=== PATIENT | male | born 1995 | race Caucasian/White ===

== ENCOUNTER 2018-10-30 20:09 | Emergency (ER) | payer OTHER, SELFPAY ==
[2018-10-30 20:16] VITALS: BP 134/82; PULSE 72; RESP 18; TEMP 36.4; O2SAT 100
--- NOTE | 2018-10-30 20:20 | W.ED.GENAD ---
Discharge Plan Disposition Patient Disposition: HOME Condition: Stable Discharge Details Chief Complaint: Orthopedic Clinical Impression: Right shoulder strain Primary Care Provider: Isabel,Local ED Provider: Ratna Frey Home Meds and New Rx's Prescriptions: Continued ibuprofen 600 mg Tablet 600 mg PO PRN PRNRF: 0 Discharge Instructions Instructions: Shoulder Sprain (ED) Additional Instructions: Rest and ice right shoulder as much as possible. Alternate Tylenol and Motrin as needed and directed for pain. Follow-up with your primary care doctor next week for reevaluation and for referral to orthopedics if your symptoms do not improve or worsen. Return to the emergency department if you develop any worsening or new concerning symptoms. Discharge Data Discharge Physician: Ratna Frey Medical Decision Making 23-year-old male presents with right shoulder injury after pulling a heavy object at work yesterday. There is mild to moderate right shoulder anterior edema and tenderness to palpation but no obvious bony deformity. Neurovascularly intact. We will give a dose of ibuprofen and sent for right shoulder x-ray. X-ray negative. Patient feels better after ibuprofen. Discussed that his symptoms could be due to a right shoulder strain or sprain. Advised to rest and ice, alternate Tylenol and Motrin. Advised to follow-up with the primary care doctor for reevaluation and for referral to orthopedics if symptoms do not improve or worsen and to return here with any concerns. Medical Records Medical records reviewed: Yes I reviewed the patient's medical records. Imaging Data Radiologic Study: Radiologist's impression: XR Right Shoulder EXAM DATE/TIME: 10/30/2018 8:39 PM CLINICAL HISTORY: 23 years old, male; Pain; Right; Patient HX: S/P pulling injury with pop in R shoulder TECHNIQUE: Imaging protocol: XR Right shoulder. Views: 2 or more views. COMPARISON: No relevant prior studies available. FINDINGS: Bones/joints: No fractures. Glenohumeral alignment is normal. A.C. joint alignment is normal. No blastic or lytic lesions. Adjacent ribs and lung parenchyma are unremarkable. Pleural space: No visible pleural effusion or pneumothorax. Soft tissues: No gross soft tissue abnormalities. IMPRESSION: No acute osseous abnormalities. HPI General Mode of arrival: ambulatory. Date/Time Provider Initiated Documentation: 10/30/18 20:19. Limitations to Documentation: no limitations. Information obtained by: patient. HPI Narrative: Patient is a 23-year-old male who presents to the ED with complaint of right shoulder pain since yesterday. 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 He states he moved his shoulder around and feels like it popped back in. He states he is not sure if he actually dislocated his shoulder but feels he may have pulled a tendon. He states he has had limitation of pain with range of motion due to pain since yesterday. He last took ibuprofen this morning. He denies any weakness or numbness in his arm. Related Data Home Medications Medication Instructions Recorded Confirmed ibuprofen 600 mg PO PRN PRN 10/30/18 10/30/18 Allergies Allergy/AdvReac Type Severity Reaction Status Date / Time No Known Allergies Allergy Unverified 10/30/18 20:19 General Stated Complaint: Orthopedic POPPY: 4 Review of Systems Review of Systems All systems reviewed & are unremarkable except as noted in HPI and below PFSH Medical History Hearing impaired person (Acute) Surgical History S/p bilateral myringotomy with tube placement (Acute) Social History Smoking/Tobacco Use Status: Never Drug use: Never Do you feel safe at home: Yes Do you feel safe in your relationship?: Yes Exam Const General: cooperative, healthy appearing and no acute distress HENMT Head: normal to inspection Mouth: oral mucosae normal Eyes General: appearance normal, both eyes and all related structures Neck Neck: normal visual inspection Resp Effort & Inspection: normal respiratory effort and able to speak in complete sentences Cardio Rate: regular rate Skin General skin exam: no rashes or lesions noted Neuro General: alert, awake and oriented x3 Motor: muscle tone normal throughout Other: Normal biceps and triceps motor function. There is not appear to be obvious biceps tendon injury. Good R hand dietitian consultant. Extrem Shoulder/upper arm images: 1. Mild to moderate edema with tenderness to palpation of right anterior medial shoulder. There is no ecchymosis, erythema. There is no bony deformity. There is no tenderness palpation of clavicle. There is no tenderness to palpation of lateral or posterior shoulder. Other: Pain with range of motion at right shoulder. Limitation of abduction, flexion, internal and external rotation due to pain. Able to passively have normal range of motion but with pain. Right radial and ulnar pulses intact. Cap refill less than 2 seconds. Psych Appearance: grossly normal Affect: normal affect Course Vital Signs Temperature 97.6 F 10/30/18 20:16 Pulse 72 10/30/18 20:16 Respiratory Rate 18 10/30/18 20:16 Blood Pressure 134/82 10/30/18 20:16 Pulse Oximetry 100 10/30/18 20:16 Temperature 97.6 F 10/30/18 20:16 Temperature Source Temporal Artery Scan 10/30/18 20:16 Pulse 72 10/30/18 20:16 Respiratory Rate 18 10/30/18 20:16 Blood Pressure 134/82 10/30/18 20:16 Blood Pressure Position Sitting 10/30/18 20:16 Pulse Oximetry 100 10/30/18 20:16 Oxygen Delivery Method Room Air 10/30/18 20:16 Oxygen Flow Rate 0 10/30/18 20:16 Pain Level 10 10/30/18 20:16 Comment 10/30/18 20:16
--- NOTE | 2018-10-30 20:37 | DI.RAD_ITS ---
SYMPTOMS/DIAGNOSIS: S/P PULLING INJURY WITH POP IN RIGHT SHOULDER, ? ACUTE BONY/JOINT INJURY RIGHT SHOULDER: No fracture or dislocation is seen. The AC joint is not widened. No rib fractures or pneumothorax is seen. IMPRESSION: Negative right shoulder.
[2018-10-30] MEDS: Ibuprofen 600 MG TAB PO (21:08)
--- NOTE | 2018-10-30 21:10 | DI.VRAD_ITS ---
EXAM: XR Right Shoulder EXAM DATE/TIME: 10/30/2018 8:39 PM CLINICAL HISTORY: 23 years old, male; Pain; Right; Patient HX: S/P pulling injury with pop in R shoulder TECHNIQUE: Imaging protocol: XR Right shoulder. Views: 2 or more views. COMPARISON: No relevant prior studies available. FINDINGS: Bones/joints: No fractures. Glenohumeral alignment is normal. A.C. joint alignment is normal. No blastic or lytic lesions. Adjacent ribs and lung parenchyma are unremarkable. Pleural space: No visible pleural effusion or pneumothorax. Soft tissues: No gross soft tissue abnormalities. IMPRESSION: No acute osseous abnormalities. Dictated and Authenticated by: Travon Dozier MD. Ordering:SIMIN Segundo MD
== END 2018-10-30 21:54 | disposition home or self-care (01) ==
PROVIDERS: Emergency Provider Physician Assistant
DX: S46.911A Strain of unspecified muscle, fascia and tendon at shoulder and upper arm level, right arm, initial encounter (principal); X50.0XXA Overexertion from strenuous movement or load, initial encounter; Y99.0 Civilian activity done for income or pay
CPT/HCPCS: 99283; 73030

== ENCOUNTER 2024-02-12 11:10 | Emergency (ER) | payer OTHER, SELFPAY ==
[2024-02-12 11:12] VITALS: BP 124/82; PULSE 70; RESP 16; TEMP 36.9; O2SAT 97
[2024-02-12 11:24] VITALS: BP 132/74; O2SAT 98
--- NOTE | 2024-02-12 11:35 | ED.GENADUL_ITS ---
Discharge Plan Disposition Patient Disposition: Home Condition: Stable Discharge Details Clinical Impression: Dental caries Primary Care Provider: Unknown,Unknown ED Provider: Juan Luis Hall Home Meds and New Rx's Prescriptions: New amoxicillin 875 mg tablet 875 mg PO BID Qty: 20 0RF Continued ibuprofen 600 mg Tablet 600 mg PO PRN PRN Discharge Instructions Instructions: Dental Pain Additional Instructions: Amoxicillin as directed. As we discussed, [id number] Tylenol and/or Motrin as directed, salt water gargles, cool and/or warm compresses, etc. It is extremely important that you follow-up with a dentist. A list has been provided. I recommend contacting everyone on that list and see who can see you the soonest. You will eventually need definitive dental care. Please watch for new or worsening symptoms and return to the ER for any concerns. HPI General Mode of arrival: ambulatory . Date/Time Provider Initiated Documentation: 02/12/24 11:17 . Limitations to Documentation: no limitations . Information obtained by: patient . History of Present Illness 29 year old M presents to the emergency department with the chief complaint of Dental pain, described as moderate, with intensity rated at 6. Quality is described as aching, and is localized to the face and mouth. Patient reports no radiation. Patient started experiencing this week(s) (2) and it has been constant. No relieving factors improve symptom(s), No exacerbating factors reported . Patient notes no other symptoms.. Patient did receive the following treatments prior to arrival, NSAID and other (Acetaminophen) Related Data Home Medications ?Medication ?Instructions ?Recorded ?Confirmed ibuprofen 600 mg tablet 600 mg PO PRN PRN 10/30/18 02/12/24 amoxicillin 875 mg tablet 875 mg PO BID #20 tabs 02/12/24 Previous Rx's ?Medication ?Instructions ?Recorded amoxicillin 875 mg tablet 875 mg PO BID #20 tabs 02/12/24 Allergies Allergy/AdvReac Type Severity Reaction Status Date / Time No Known Allergies Allergy Unverified 02/12/24 11:14 General Stated Complaint: DentalOral POPPY: 4 Review of Systems Constitutional Constitutional: Denies fever(s) ENT Ears, Nose, Mouth, and Throat: Denies otalgia and Denies sore throat Cardiovascular Cardiovascular: Denies chest pain Respiratory Respiratory: Denies cough Gastrointestinal Gastrointestinal: Denies abdominal pain, Denies nausea and Denies vomiting Integumentary/Breasts Skin/Breast: Denies rash Exam Const General: cooperative, healthy appearing, comfortable and no acute distress Orientation: alert, awake and oriented x3 HENMT Head: normal to inspection, normocephalic and atraumatic Ears: external ears normal, TM's normal bilaterally and EAC's normal General nose exam: external nose normal Face and sinus: normal facial exam Face images: 2 1. Tenderness without swelling, erythema, fluctuation, pointing abscess. Mouth: moist mucous membranes Teeth and gingiva: caries (Throughout), gingiva abnormal receding and poor dentition (Throughout) Throat: posterior oropharynx normal Throat image: 2 1. Tenderness Eyes General: appearance normal, both eyes and all related structures Conjunctivae: conjunctivae normal Neck Neck: normal visual inspection, full ROM, no lymphadenopathy, no meningeal signs, trachea midline and supple Resp Effort & Inspection: normal respiratory effort and able to speak in complete sentences Cardio Rate: regular rate Rhythm: regular rhythm Skin General skin exam: no rashes or lesions noted Neuro General: patient alert, patient awake, moves all extremities and no focal motor deficits Sensory Exam: no sensory deficits noted Psych Appearance: grossly normal Mental Status: mental status grossly normal Course Vital Signs Vital signs: Vital Signs Temperature 36.9 C 02/12/24 11:12 Pulse 70 02/12/24 11:12 Respiratory Rate 16 02/12/24 11:12 Blood Pressure 124/82 02/12/24 11:12 Pulse Oximetry 97 02/12/24 11:12 Temperature 36.9 C 02/12/24 11:12 Temperature Source Temporal Artery Scan 02/12/24 11:12 Pulse 70 02/12/24 11:12 Respiratory Rate 16 02/12/24 11:12 Respiratory Effort Normal, Non-Labored 02/12/24 11:14 Blood Pressure 132/74 02/12/24 11:24 Blood Pressure Position Sitting 02/12/24 11:12 Pulse Oximetry 98 02/12/24 11:24 Oxygen Delivery Method Room Air 02/12/24 11:12 Oxygen Flow Rate 0 02/12/24 11:12 Medical Decision Making 29-year-old male who smokes approximately 2 packs of cigarettes daily, presents for left-sided change in mouth or dental pain for at least 2 weeks. He reports chronic poor dentition, has actually previously drilled and filed his own teeth when he had a cavity which was painful. He does not have any dental care. Denies fever, facial swelling, difficulty speaking, swallowing, or breathing. Has been taking Tylenol and Motrin with little relief. Clinically he appears well, nontoxic, speaks in full sentences. Airway is patent. No evidence of trismus. No evidence of pointing abscess. Poor dentition throughout. Discussed in length with patient and family. Patient will require definitive dental care. He was provided with a dental list to help expedite this process. Recommend he contact the dentist on this list and get next available appointment. Will provide a antibiotic prescription. Recommend that he continues with Tylenol and Motrin. Recommend salt water gargle swish and spit, Orajel, cool and warm compresses, etc. Recommend monitoring for new or worsening symptoms and returning immediately to the ER. Otherwise again stressed the importance of outpatient dental follow-up. Standard discharge and return precautions were provided. Patient understands, is agreeable to this plan, and has no additional questions or concerns upon discharge. This documentation was generated using [employer] dictation system, please disregard any oddities of phrase or misspellings. Medical Records Medical records reviewed: Yes I reviewed the patient's medical records. Quality:SDOH Health Related Social Needs: 2 No Data to Display PFSH All Active Problems Dental caries (Acute) Sensorineural hearing loss (SNHL) of both ears (Acute) Medical History Hearing impaired person Surgical History S/p bilateral myringotomy with tube placement Social History Smoking/Tobacco Use Status: Current every day Tobacco Type: cigarettes Smoking risk assessment performed?: Yes Alcohol Intake: never Drug use: Never Substance use type: does not use Do you feel safe at home: Yes Do you feel safe in your relationship?: Yes
[2024-02-12] MEDS: Ibuprofen 800 MG TAB PO (11:41)
[2024-02-12] MEDS: Amoxicillin 875 MG TAB PO (11:41)
== END 2024-02-12 13:16 | disposition home or self-care (01) ==
LOC: ER 11:56
PROVIDERS: Emergency Provider Physician Assistant
DX: K04.7 Periapical abscess without sinus (principal); F17.210 Nicotine dependence, cigarettes, uncomplicated
CPT/HCPCS: 99283

== ENCOUNTER 2024-11-03 06:04 | Day surgery (SDC) | payer MEDICAID, SELFPAY ==
[2024-11-03] VITALS (24 sets, daily range): BP systolic 90–116; BP diastolic 44–75; PULSE 49–75; RESP 13–21; TEMP 36.2–37.1; O2SAT 94–98; BMI 31.8
--- NOTE | 2024-11-03 06:45 | HPE_ITS ---
Date of service: 11/03/24 Time of Service: 06:45 Assessment and Plan Assessment and plan (1) Encounter for vasectomy: Status: Acute Assessment and plan: We discussed potential complications including bleeding, infection, chronic pain or recanalization of the vas. He is reminded that he is not considered sterile until he brings a sample to the office we identified the absence of sperm in the semen. The sample should be provided in about 12 weeks. History of Present Illness History of Present Illness Chief Complaint: Elective sterilization Narrative: This is a 29 year old gentleman who comes in to have a vasectomy. He and his partner have 5 children. His partner is currently taking control pills. He has had no prior scrotal surgeries. He has no issues with adverse reactions from anesthesia. He has no issues with wound healing or excessive bleeding. When I initially evaluated him, I was not able to isolate the left vas deferens from a palpable varicocele. For that reason, we recommended not to have the procedure done in the office but here in the operating room. Review of Systems Narrative: No fevers or chills Decreased hearing acuity. Allergic rhinitis. No vision change or dysphasia No diabetes or thyroid dysfunction No shortness of breath, cough or hemoptysis No chest pain or palpitations No nausea, vomiting, hepatitis, ulcers, jaundice No seizures, strokes or peripheral neuropathy No bleeding disorders or anemia No gout PFSH All Active Problems (Updated 11/03/24 @ 06:50 by Vineet Zepeda MD) Encounter for vasectomy (Acute) Sensorineural hearing loss (SNHL) of both ears (Acute) Medical History (Updated 11/03/24 @ 06:50 by Vineet Zepeda MD) Hearing impaired person Surgical History S/p bilateral myringotomy with tube placement Social History Smoking/Tobacco Use Status: Current every day Tobacco Type: cigarettes Years smoked: 20 Smoking risk assessment performed?: Yes Alcohol Intake: current Alcohol Intake frequency: a few times a month Alcohol type: beer Drug use: Never Substance use type: does not use Housing: house Do you feel safe at home: Yes Do you feel safe in your relationship?: Yes Meds Allergies and Home Medications Allergies Allergy/AdvReac Type Severity Reaction Status Date / Time No Known Allergies Allergy Verified 11/03/24 06:29 Home Medications ?Medication ?Instructions ?Recorded ?Confirmed ?Type ibuprofen 600 mg tablet 600 mg PO PRN PRN 10/30/18 0 11/03/24 History Exam Const General: cooperative Neck Neck: supple Resp Effort & Inspection: normal respiratory effort Auscultation: clear to auscultation bilaterally Cardio Rate: regular rate Rhythm: regular rhythm GI Palpation: soft and no masses Neuro General: patient alert, patient awake and patient oriented x3 Results Last Vital Signs Temp 37.1 C 11/03/24 06:19 Pulse 72 11/03/24 06:19 Resp 16 11/03/24 06:19 BP 116/75 11/03/24 06:19 Pulse Ox 98 11/03/24 06:19 Time Spent Time spent with Patient: <40 minutes Time was spent: other
[2024-11-03] MEDS: Lactated Ringers 1,000 ML 80 ML IV (06:47)
--- NOTE | 2024-11-03 07:05 | W.ANESPRE ---
General Info Date of Service Date Performed: 11/03/24 Height: 6 ft Weight: 106.4 kg Body Mass Index (BMI): 31.8 Surgical Procedure: Operation Date: 11/03/24 07:40 Proposed Procedure Side Surgeon p Vasectomy Vineet Zepeda MD Meds Allergies and Home Medications Allergies Allergy/AdvReac Type Severity Reaction Status Date / Time No Known Allergies Allergy Verified 11/03/24 06:29 Home Medication ?Medication ?Instructions ?Recorded ibuprofen 600 mg tablet 600 mg PO PRN PRN 10/30/18 Current Visit Medications: Current Medications Generic Name Dose Route Start Last Admin Trade Name Freq PRN Reason Stop Dose Admin Ringer's Solution 1,000 mls @ 80 mls/hr 11/03/24 06:00 11/03/24 06:47 IV 11/03/24 23:59 80 mls/hr INFUSION INES Administration IV Miscellaneous Supplies 1 each 11/03/24 06:00 Iv Access IV 11/03/24 23:59 DIRECTED INES Sodium Chloride 0 ml 11/03/24 06:00 Normal Saline Flush 10 Ml Syr IV 11/03/24 23:59 PRN PRN Sodium Chloride 0 ml 11/03/24 06:00 Normal Saline 10 Ml Vial IJ 11/03/24 23:59 DIRECTED PRN Sterile Water 0 ml 11/03/24 06:00 Water,Injection,Sterile 10 Ml Vial IJ 11/03/24 23:59 DIRECTED PRN PFSH Active Problems Active Problems: Problem Status Onset Code Encounter for vasectomy Acute Z30.2 Sensorineural hearing loss (SNHL) of both ears Acute H90.3 Medical History Medical History (Updated 11/03/24 @ 06:50 by Vineet Zepeda MD) Hearing impaired person Surgical History Surgical History S/p bilateral myringotomy with tube placement Tobacco Smoking/Tobacco Use Status: Current every day Tobacco Type: cigarettes Years smoked: 20 Alcohol Alcohol Intake: current Alcohol intake frequency: a few times a month Alcohol type: beer Substance Use Substance use: Never Substance use type: does not use Vital Signs and Lab Results Vital Signs Most Recent Vital Signs in EMR: Most Recent Vital Signs Temp Pulse Resp BP Pulse Ox 37.1 C 72 16 116/75 98 11/03/24 06:19 11/03/24 06:19 11/03/24 06:19 11/03/24 06:19 11/03/24 06:19 Anesthesia Assessment and Plan Anesthesia History Personal History: No History of Anesthesia Complications Family History: No Family History of Anesthesia Complications Exercise Tolerance Exercise Tolerance: Metabolic Equivalents>4 Pertinent Negatives Pertinent Negatives: No Symptoms of GERD Cardiac & Pulmonary Exam Cardiac Exam: Normal S1/S2 Heart Sounds Pulmonary Exam: Clear Bilateral Breath Sounds Implantable Cardiac Device Does patient have a Pacemaker or an ICD?: No Airway Exam Known Difficult Airway: No Mallampati Class: 2 Mouth Opening: Normal (> 3cm) Thyromental Distance: Less than 3 cm Neck Range of Motion: Full ROM Neck Circumference: Normal Teeth Condition: Normal Dentition ASA Classification ASA Score: ASA 2 Emergency Case?: No NPO Status NPO Status: NPO Clears >2 hours, Solids >8 hours Anesthesia Plan Resuscitation Status: Full Code Anesthesia Technique: General Anesthesia Airway Planned: LMA Monitors Used: Standard Monitors
--- NOTE | 2024-11-03 08:04 | W.PM.DSUDISC ---
Date of service: 11/03/24 Discharge Plan Disposition Patient Disposition: Home Condition: Stable Discharge Details Reason For Visit: vasectomy Attending Provider: Vineet Zepeda Primary Care Provider: Unknown,Unknown Home Meds and New Rx's Prescriptions: No Action ibuprofen 600 mg Tablet 600 mg PO PRN PRN Discharge Instructions Additional Instructions: No lifting over 20 pounds for the first 48 hours. No ejaculation for 7 days. We recommend that you wear tight supportive undergarments for at least the first 48 hours to help minimize swelling. Ice packs (a bag of frozen peas works well) to the scrotum can be applied 30 minutes on and 30 minutes off just while you are awake for the first 48 hours. You may take Tylenol and ibuprofen as needed for pain Please remember that you are not considered sterile until you bring a sample to the office and we identified the absence of sperm. The sample should be provided in about 12 weeks. You do not need an appointment to drop the sample off, but it would be best if the sample can be dropped off on a Thursday or Thursday (the days I am in the office). We will then call you to let you know if all the sperm are gone. Stand Alone Forms: Anesthesia Discharge Inst., Araceli Nguyen ([facility]), [facility] Vasectomy Post-op Activity:: No lifting over 20 pounds for 48 hours Remove Dressings/Wound Care:: 24 hours Shower/Bathe:: 24 hours Diet:: As Tolerated Discharge Orders Discharge Orders: Discharge Order (Routine); Ordered 11/03/24 Ordered By: Vineet Zepeda DS: Diagnosis Discharge Diagnosis (1) Encounter for vasectomy: Status: Acute
--- NOTE | 2024-11-03 08:08 | W.PM.OP ---
Operative Note Operative Note PRE-OP DIAGNOSIS: Elective sterilization POST-OP DIAGNOSIS: same PROCEDURE: Vasectomy SURGEON: Vineet Zepeda ANESTHESIA TYPE: Local By Surgeon and General LMA/ETT Refer to Anesthesia Record ESTIMATED BLOOD LOSS: 5 PATHOLOGY: none sent COMPLICATIONS: None Patient was transported to: PACU Patient's condition: stable Implants: None Indications: This is a 29-year-old gentleman who comes in for vasectomy. He and his partner 5 children and is not interested in additional . When I examined him in the office, he had thickening of the left spermatic cord was difficult to isolate the vas deferens. He presents for vasectomy.. Findings: Normal anatomy Procedure Description: The patient was brought to the operating room on 11/03/2024. No preoperative antibiotics were given. After successful induction of general anesthesia, he was placed in the supine position. His genitalia was prepped and draped. We began on the left side and isolated the vas deferens up against the scrotal skin. The skin was infiltrated with 1% Xylocaine. The skin was then opened using a scalpel free technique. The vas deferens was grasped within a ring forceps. The vas was dissected free from its surrounding tissue. A 2 cm section of vas was then excised. Each cut end of the vas was cauterized using a hand-held Bovie. The more proximal end of the vas was buried back beneath the adventitia using a simple interrupted 4-0 chromic suture. Once hemostasis had been obtained, the skin was closed with Dermabond. The same procedure was then performed on the patient's right side. Neither the vas deferens was sent to pathology. This is the current recommendation of the [place] [employer]. Date of Procedure: 11/03/24
--- NOTE | 2024-11-03 09:18 | W.ANESPOSTOP ---
Postoperative Evaluation Date, Time and Location Date Performed: 11/03/24 Time Performed: 08:45 Patient Location: Day Surgery Unit Vital Signs Most Recent Imported Vital Signs: Most Recent Vital Signs Temp Pulse Resp BP Pulse Ox 36.4 C L 65 16 109/69 97 11/03/24 08:48 11/03/24 08:48 11/03/24 08:48 11/03/24 08:48 11/03/24 08:48 Pain Score Most Recent Pain Score: Most Recent Pain Score Pain Level 0 11/03/24 08:48 Assessment Mental Status: Awake (Alert & Oriented to Patient Baseline) Airway and Respiratory Function: Patent airway with normal (patient baseline) respiratory exam Cardiovascular Function: Hemodynamically Stable Hydration Status: Adequately Hydrated Nausea & Vomiting: No Nausea or Vomiting Pain: Pt. Denies Any Pain Peripheral Nerve Block: Patient did not receive a nerve block
== END 2024-11-03 09:37 | disposition home or self-care (01) ==
PROVIDERS: Visit Provider Urology
PROC: (CPT 55250; principal; 2024-11-03 07:30)
DX: Z30.2 Encounter for sterilization (principal)
CPT/HCPCS: 55250; J0665; J1100; J1885; J2250; J2405; J2704